=== PATIENT | male | born 1985 | race Caucasian/White ===

== ENCOUNTER 2020-07-03 08:58 | Outpatient (CLI) | payer OTHER, SELFPAY | END 2020-07-03 08:59 | disposition home or self-care (01) | LOC: ANHBWCAUD 08:59 | DX: H91.93 Unspecified hearing loss, bilateral (principal) | CPT/HCPCS: 92557; 92567 ==

== ENCOUNTER 2023-08-05 10:30 | Outpatient (CLI) | payer OTHER, SELFPAY | END 2023-08-05 10:31 | disposition home or self-care (01) | LOC: ANHBWCAUD 10:31 | PROVIDERS: Visit Provider Family Medicine | DX: H91.93 Unspecified hearing loss, bilateral (principal) | CPT/HCPCS: 99199 ==

== ENCOUNTER 2024-03-01 09:20 | Outpatient (CLI) | payer OTHER, SELFPAY | END 2024-03-01 09:21 | disposition home or self-care (01) | LOC: ANHBWCAUD 09:22 | PROVIDERS: Visit Provider Family Medicine | DX: H91.3 Deaf nonspeaking, not elsewhere classified (principal) | CPT/HCPCS: 92557; 92567 ==